=== PATIENT | male | born 1960 ===

== ENCOUNTER 2022-03-22 10:01 | Outpatient (CLI) | payer OTHER ==
[2022-03-23] MEDS ORDERED: CRESTOR5 MG PO (19:01)
== END 2022-03-22 10:21 | disposition home or self-care (01) ==
LOC: RAD 10:01 → EDBD 10:01 → RAD 10:21
PROVIDERS: ATTEND General Practice
DX: R07.1 Chest pain on breathing (principal)

== ENCOUNTER 2022-03-23 18:33 | Emergency (ER) | payer OTHER ==
[~2022-03-23] VITALS: Ht 185.4 cm; Wt 98.9 kg
[2022-03-23] MEDS ORDERED: CRESTOR5 MG PO (19:01)
== END 2022-03-23 22:52 | disposition home or self-care (01) ==
LOC: ER 18:33
DX: I20.0 Unstable angina (principal); R00.2 Palpitations

== ENCOUNTER → 2023-12-11 | Emergency (ER) | payer OTHER ==
[~2023-12-11] VITALS: Ht 185.4 cm; Wt 99.8 kg
[~2023-12-11] MED LIST: CRESTOR5 MG PO; DEXAMETHASONE SODIUM PHOSPHATE 4 MG/ML VIAL IM STA; KETOROLAC TROMETHAMINE 60 MG VIAL IM STA; OxyCODONE HCL/APAP UD (PERCOCET) PO STA; VITAMIN D-40010 MCG PO
== END | disposition left against medical advice (07) ==
LOC: ER 03:59
DX: S69.92XA Unspecified injury of left wrist, hand and finger(s), initial encounter (principal); X58.XXXA Exposure to other specified factors, initial encounter; Y93.9 Activity, unspecified; Y92.9 Unspecified place or not applicable; Y99.9 Unspecified external cause status

== ENCOUNTER 2023-12-14 15:18 | Outpatient (CLI) | payer OTHER ==
[~2023-12-14 15:18] MED LIST changes: -DEXAMETHASONE SODIUM PHOSPHATE 4 MG/ML VIAL IM STA; -KETOROLAC TROMETHAMINE 60 MG VIAL IM STA; -OxyCODONE HCL/APAP UD (PERCOCET) PO STA
== END 2023-12-14 15:26 | disposition home or self-care (01) ==
LOC: RAD 15:18
PROVIDERS: ATTEND General Practice
DX: M79.642 Pain in left hand (principal); M25.532 Pain in left wrist

== ENCOUNTER 2024-01-05 07:44 | Outpatient (CLI) | payer OTHER | END 2024-01-05 07:53 | disposition home or self-care (01) | LOC: SONOGRAMA 07:44 | PROVIDERS: ATTEND General Practice | DX: R10.11 Right upper quadrant pain (principal); R14.0 Abdominal distension (gaseous) ==

== ENCOUNTER 2025-07-25 07:21 | Outpatient (CLI) | payer OTHER | END 2025-07-25 07:26 | disposition home or self-care (01) | LOC: SONOGRAMA 07:21 | PROVIDERS: ATTEND Internal Medicine Gastroenterology | DX: M54.59 Other low back pain (principal); K80.20 Calculus of gallbladder without cholecystitis without obstruction; R10.10 Upper abdominal pain, unspecified ==